=== PATIENT | male | born 1990 | race African-American/Black ===

== ENCOUNTER → 2024-10-03 11:10 | Observation (INO) ==
--- NOTE | 2024-10-02 15:00 | History & Physical Report ---
H&P: HPI History of Present Illness Chief complaint: dehydration, tachycardia, proteinuria, ketonuria Narrative: A 34-year-old male sent in from Emi Corral's office with going on a ivan this weekend had nausea and vomiting unable to really drink and eat feeling palpitations in his chest denies any fever, chills, diarrhea, constipation no ill contacts that he is aware of although he is around people at work. Denies any other symptoms and no previous medical history Review of Systems Status of ROS 10 or more systems reviewed and unremark able except as noted in history and below and unobtainable due to endotracheal tube Constitutional Reports: change in weight, fatigue, malaise and change in sleep pattern; Denies: fever or chills Eyes Denies: change in vision, blurry vision, blind spots, light sensitivity or eye discomfort Ears, nose, mouth, and throat Reports: dry mouth, ear discharge and change in hearing (CHRONIC HEARNG LOSS); Denies: throat pain, neck pain, throat swelling, difficulty swallowing, hoarseness, mouth pain or swelling of lips/tongue Cardiovascular Reports: palpitations; Denies: chest pain, edema, swelling of feet/ankles, lightheadedness or shortness of breath with exertion Respiratory Denies: shortness of breath, cough, wheezing or stridor Gastrointestinal Reports: abdominal pain, nausea, vomiting and difficulty swallowing; Denies: coffee grounds in vomit, heartburn, diarrhea, constipation, rectal swelling or change in stool character Genitourinary Reports: decreased urine ouput; Denies: painful urination, urinary frequency, urinary urgency, blood in urine, genital pain or genital lesi on Musculoskeletal Reports: muscle weakness (MUSCLE STIFFNESS); Denies: back pain, neck pain, extremity pain, extremity swelling, joint pain or limited range of motion Integumentary/Breast Reports: nail changes; Denies: rash, itching, redness, skin pain, skin tenderness, skin swelling, sores, new lesion, non-healing lesion, acne or breast swelling Neurological Reports: difficulty communicating thoughts; Denies: headache, numbness in extremities, weakness in extremities, lack of coordination, involuntary movements or other Psychiatric Reports: mood swings; Denies: panic attacks, change in sleep pattern, hopelessness, loss of interest, irritability, paranoia, memory loss, suicidal ideation or homicidal ideation Endocrine Reports: fatigue; Denies: excessive urination, excessive thirst, cold intolerance or excessive sweating Hematologic/Lymphatic Denies: easy bruising, easy bleeding or enlarged lymph nodes Allergic/Immunologic Denies: hives, throat swelling, tongue swelling, facial swelling or wheezing [facility] Medical History (Updated 10/03/24 @ 09:52 by Tessy Ramirez DO) Allergic rhinitis Social History Problems where you live: no known problems Highest level of school completed/degree received: high school Feel stressed/tense/nervous/anxious/difficulty sleeping: not at all Gender Identity: male Meds Home Medications and Allergies Home Medications Medication Instructions Recorded Confirmed Type ferrous sulfate 325 mg (65 mg 325 mg PO DAILY iron def iciency 10/03/24 Rx iron) tablet (Feosol) #30 tabs propranolol 10 mg tablet 10 mg PO BID hyperthyroid # 60 tabs 10/03/24 Rx propylthiouracil 50 mg tablet 50 mg PO BID hyperthyroi dism #60 10/03/24 Rx tabs Allergies Allergy/AdvReac Type Severity Reaction Status Date / Time ibuprofen Allergy Mild Verified 10/02/24 11:18 Exam Constitutional: normal general appearance, no apparent distress, average body habitus, no limitations and alert Vital Signs - 24 hr 10/02/24 10:50 10/02/24 12:12 Temperature 98.1 F 98.3 F Pulse Rate [Left C arotid] 60 Pulse Rate [Left] 96 H Respiratory Rate 20 20 Blood Pressure [Le ft Arm] 133/89 Blood Pressure [Ri ght Arm] 117/75 Pulse Oximetry 97 99 Oxygen Delivery Me thod Room Air Room Air HENMT: normocephalic, head/scalp atraumatic, hearing grossly normal bilaterally, external ears normal, oral mucous membranes abnormal and dentition abnormal Eyes: PERRL, EOMs intact bilaterally, conjunctivae normal, no scleral icterus, papilledema noted and periorbital findings normal Neck/C-Spine: visual inspection normal, trachea midline, cervical spine nontender, cervical full ROM noted, supple, no meningeal signs, thyroid normal and no carotid bruits Lymph: no lymphadenopathy noted and no lymphedema noted Chest: inspection of chest normal and palpation of chest normal Respiratory: breath sounds equal bilaterally, normal respiratory effort, clear to auscultation bilaterally, no wheezes, no rales, no retractions and no use of accessory muscles Cardiovascular: heart rate abnormal (tachycardic), regular rhythm noted, no gallop, no rub, no murmur, no JVD, no clicks and peripheral pulses 2+ throughout Gastrointestinal: abdomen normal to inspection, abdomen soft to palpation, tender to palpation, nontender to percussion, nondistended, abnormal bowel sounds noted (hyperactive bowel sounds), no hepatosplenomegaly, no masses, no pulsatile mass, no ascites and no hernia Genitourinary: no CVA tenderness, bladder normal to palpation, penis normal and circumcised Back/Pelvis: spine normal to inspection, no thoracic spine tenderness, no lumbar spine tenderness, thoracic spine ROM normal and lumbar spine ROM normal Extremities: normal to inspection, normal to palpation, no tenderness, full ROM, no joint enlargement and no deformity Neurology: 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, no movement abnormality noted, no focal motor deficit noted, no sensory deficits noted, deep tendon reflexes 2+ bilaterally, gait normal, speech normal, coordination normal, no pronator drift noted, fasciculations noted and GCS normal Psychiatry: Mental Status Exam documented within this Exam's Psych section mental status grossly normal, oriented x3, thought process abnormality noted, cooperative, affect normal, psychomotor activity normal and memory normal Feel stressed/tense/nervous/anxious/difficulty sleeping: not at all Skin: skin color abnormal Reports (pale), no rash, no lesions, no ecchymosis noted, no wounds, no lacerations, skin turgor abnormal Reports (tenting), no jaundice, no petechiae, no mottling, nails abnormality noted and no alopecia Assessment and Plan Assessment and Plan (1) Acute dehydration: Code(s): E86.0 - Dehydration (2) Tachycardia: Code(s): R00.0 - Tachycardia, unspecified (3) Allergic rhinitis: Qualifiers: Allergic rhinitis seasonality: seasonal Allergic rhinitis trigger: other Qualified Code(s): J30.89 - Other allergic rhinitis Code(s): J30.9 - Allergic rhinitis, unspecified (4) Nausea & vomiting: Qualifiers: Vomiting type: bilious vomiting Qualified Code(s): R11.14 - Bilious vomiting Code(s): R11.2 - Nausea with vomiting, unspecified (5) ETOH abuse: Code(s): F10.10 - Alcohol abuse, uncomplicated Plan 0.9% normal saline 1 L bolus then at 125 mL/h TSH 0.297 will need to get substantial studies to include thyroid ultrasound as an outpatient and T4 T3 uptake as an inpatient Cardiac monitoring Strict I's and O's Zofran 4 mg IV every 4 hours as needed nausea vomiting PTU 50 mg p.o. every 8 hours Propranolol 10 mg Results ECG Attestation: I have reviewed the pertinent ECG results. Prior ECG tracings: available for review Interpretation: EKG-sinus rhythm, early repolarization pattern, rate 81, 740 RR, NM 162
[2024-10-02 15:14] LABS: Basophils%(Percent) Auto 0.5 (0.0-1.3); Eosinophils#(Absolute)Auto 0.1 (0.0-0.3); Eosinophils%(Percent) Auto 1.8 % (0.0-4.0); Granulocytes % - Auto 68.9 % (49.1-73.1); Granulocytes#(Absolute)- Auto 4.3 (2.0-6.2); Hematocrit 37.1 % (41.3-50.1); Mean Corpuscular Volume 75.1 fl (81.9-96.5); Monocytes #(Absolute)- Auto 0.5 (0.2-0.8); Platelet Count 275 K/uL (142-355); White Blood Count 6.2 K/uL (3.7-9.6)
[2024-10-02] MEDS: 0.9 % SODIUM CHLORIDE 1000 ML 1,000 ML IV ONE (15:30)
[2024-10-02 15:33] LABS: Potassium 3.7 mmol/L (3.6-5.2)
[2024-10-02] MEDS: 0.9 % SODIUM CHLORIDE 1000 ML 1,000 ML IV SCH (17:10)
[2024-10-02 20:23] LABS: Urine Appearance CLEAR (CLEAR); Urine Blood NEGATIVE (NEG - TRACE); Urine Color YELLOW (STRAW/YELL.); Urine Urobilinogen Normal (NORMAL)
[2024-10-02 20:28] LABS: Amphetamine Screen Urine NEG. (NEGATIVE); Cannabinoid Screen Urine NEG. (NEGATIVE); Cocaine Screen Urine NEG. (NEGATIVE); Methadone Screen Urine NEG. (NEGATIVE); Opiate Screen Urine NEG. (NEGATIVE)
[2024-10-02] MEDS: PANTOPRAZOLE SODIUM 40 MG TABLET.DR PO SCH (21:06)
[2024-10-03 05:56] LABS: Basophils%(Percent) Auto 0.8 (0.0-1.3); Eosinophils#(Absolute)Auto 0.3 (0.0-0.3); Eosinophils%(Percent) Auto 5.7 % (0.0-4.0); Granulocytes % - Auto 49.2 % (49.1-73.1); Granulocytes#(Absolute)- Auto 2.7 (2.0-6.2); Hematocrit 31.8 % (41.3-50.1); Mean Corpuscular Volume 75.8 fl (81.9-96.5); Monocytes #(Absolute)- Auto 0.5 (0.2-0.8); Monocytes %(Percent)- Auto 8.5 % (4.5-10.7); Platelet Count 210 K/uL (142-355); White Blood Count 5.6 K/uL (3.7-9.6)
[2024-10-03 06:18] VITALS: TEMP 97.8
[2024-10-03 06:38] LABS: Potassium 4.1 mmol/L (3.6-5.2)
[2024-10-03 07:40] VITALS: BP 110/67; PULSE 94; RESP 19
--- NOTE | 2024-10-03 09:51 | Discharge Summary ---
DS: Providers Provider Date of admission: 10/02/24 10:15 Primary care physician: Emi Gr NP Admitting clinician: Emi Gr Attending physician on admission: Tessy Ramirez Attending physician on discharge: Tessy Ramirez Discharging clinician: Tessy Ramirez Anticipated date of discharge: 10/03/24 DS: Diagnosis Discharge Diagnosis (1) Acute dehydration: (2) Tachycardia: (3) Allergic rhinitis: Qualifiers: Allergic rhinitis seasonality: seasonal Allergic rhinitis trigger: other Qualified Code(s): J30.89 - Other allergic rhinitis (4) Nausea & vomiting: Qualifiers: Vomiting type: bilious vomiting Qualified Code(s): R11.14 - Bilious vomiting (5) ETOH abuse: (6) Hyperthyroidism: (7) Anemia: Qualifiers: Anemia type: other cause Other causes of anemia: other cause, not classified Qualified Code(s): D64.89 - Other specified anemias (8) Hypoalbuminemia: DS: Summary Hospital Course Hospital Course: Patient did well during hospitalization no more nausea or vomiting and was able to eat and drink TSH came back at 0.24 so thyroid ultrasound was scheduled and brimonidine was sent to endocrinology for the treatment of his hypothyroidism definitive treatment. Iron studies pending for anemia as machine in the lab has been down and it was a send out. Sodium corrected to 145 today with fluids and oral intake of fluids Status at Discharge Functional status at discharge: independent ambulation Overall status at discharge: patient is back to baseline Time Spent with Patient Time attestation: Total time spent providing and/or coordinating discharge services:49 Time spent: greater than 30 minutes Exam Constitutional: normal general appearance, no apparent distress, average body habitus, no limitations and alert Vital Signs - 24 hr 10/02/24 10:50 10/02/24 12:12 10/02/24 16:29 Temperature 98.1 F 98.3 F 98.4 F Pulse Rate [Brachi al] Pulse Rate [Left C arotid] 60 77 Pulse Rate [Left] 96 H 19 L Respiratory Rate 20 20 99 H Blood Pressure [Le ft Arm] 133/89 Blood Pressure [Ri ght Arm] 117/75 123/72 Pulse Oximetry 97 99 Oxygen Delivery Me thod Room Air Room Air Room Air 10/02/24 21:06 10/03/24 00:00 06/24/25 06:17 Temperature 98.0 F 98.2 F 97.8 F Pulse Rate [Brachi al] 86 88 84 Pulse Rate [Left C arotid] Pulse Rate [Left] Respiratory Rate 17 16 17 Blood Pressure [Le ft Arm] Blood Pressure [Ri ght Arm] 132/85 108/57 107/65 Pulse Oximetry 97 98 98 Oxygen Delivery Me thod Room Air Room Air Room Air 10/03/24 07:39 Temperature 97.8 F Pulse Rate [Brachi al] 94 H Pulse Rate [Left C arotid] Pulse Rate [Left] Respiratory Rate 19 Blood Pressure [Le ft Arm] Blood Pressure [Ri ght Arm] 110/67 Pulse Oximetry 96 Oxygen Delivery Me thod Room Air HENMT: normocephalic, head/scalp atraumatic, hearing grossly normal bilaterally and external ears normal Eyes: PERRL, EOMs intact bilaterally, conjunctivae normal and no scleral icterus Neck/C-Spine: visual inspection normal, trachea midline, cervical spine nontender, cervical full ROM noted, supple and thyroid normal Lymph: no lymphadenopathy noted and no lymphedema noted Chest: inspection of chest normal and palpation of chest normal Respiratory: breath sounds equal bilaterally, normal respiratory effort, clear to auscultation bilaterally, no wheezes, no rales, no retractions and no use of accessory muscles Cardiovascular: normal heart rate noted, regular rhythm noted, no gallop, no rub, no murmur, no JVD, no clicks and peripheral pulses 2+ throughout Gastrointestinal: abdomen normal to inspection, abdomen soft to palpation, nontender to palpation, nontender to percussion, nondistended, normoactive bowel sounds, no hepatosplenomegaly, no masses, no pulsatile mass, no ascites and no hernia Genitourinary: no CVA tenderness, bladder normal to palpation, penis normal and circumcised Back/Pelvis: spine normal to inspection, no thoracic spine tenderness, no lumbar spine tenderness, thoracic spine ROM normal and lumbar spine ROM normal Extremities: normal to inspection, normal to palpation, no tenderness, full ROM, no joint enlargement and no deformity Neurology: security manager II-XII 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, no movement abnormality noted, no focal motor deficit noted, no sensory deficits noted, deep tendon reflexes 2+ bilaterally, gait normal, speech normal, coordination normal, no pronator drift noted, fasciculations noted and GCS normal Psychiatry: Mental Status Exam documented within this Exam's Psych section mental status grossly normal, oriented x3, thought process abnormality noted, cooperative, affect normal, psychomotor activity normal and memory normal Feel stressed/tense/nervous/anxious/difficulty sleeping: not at all Skin: skin color normal, no rash, no lesions, no ecchymosis noted, no wounds, no lacerations, skin turgor normal, no jaundice, no petechiae, no mottling, na ils normal and no alopecia DS: Data Data Completed and Pending Labs on day of discharge: Labs from last 24 hours 10/03/24 10/02/24 10/02/24 05:15 19:52 15:20 WBC 5.6 RBC 4.2 L Hgb 10.5 L Hct 31.8 L MCV 75.8 L MCH 24.9 L MCHC 32.9 L RDW 19.9 H Plt Count 210 MPV 8.0 Gran % 49.2 Lymph % (Auto) 35.8 [place] % (Auto) 8.5 Eos % (Auto) 5.7 H Baso % (Auto) 0.8 Lymph # (Auto) 2.0 [place] # (Auto) 0.5 Eos # (Auto) 0.3 Baso # (Auto) 0.0 Absolute Gran (auto) 2.7 Sodium 145 Potassium 4.1 Chloride 108.0 H Carbon Dioxide 24 Anion Gap 13.0 BUN 11 Creatinine 0.7 Estimated GFR 124.0 Glucose 82 Lactic Acid Calcium 7.8 L Phosphorus 4.5 Magnesium 1.8 Total Bilirubin 0.50 AST 23 ALT 26 L Alkaline Phosphatase 36 L Total Protein 6.4 Albumin 3.1 L TSH Thyroxine (T4) 6.2 Urine Color Yellow Urine Appearance Clear Ur Specific [place] 1.010 Urine Protein Negative Urine Glucose (UA) Normal Urine Ketones Large Urine Occult Blood Negative Urine Nitrite Negative Urine Bilirubin Negative Urine Urobilinogen Normal Ur Leukocyte Esterase Negative Fluid pH 6.0 Urine Opiates Screen Neg. Urine Methadone Screen Neg. Barbiturate Screen Neg. Ur Phencyclidine Scrn Neg. Amphetamines Screen Neg. U Benzodiazepines Scrn Neg. Urine Cocaine Screen Neg. U Marijuana (THC) Screen Neg. Plasma/Serum Alcohol 1 10/02/24 15:10 WBC 6.2 RBC 4.9 Hgb 12.1 L Hct 37.1 L MCV 75.1 L MCH 24.5 L MCHC 32.6 L RDW 20.3 H Plt Count 275 MPV 7.5 Gran % 68.9 Lymph % (Auto) 20.8 [place] % (Auto) 8.0 Eos % (Auto) 1.8 Baso % (Auto) 0.5 Lymph # (Auto) 1.3 [place] # (Auto) 0.5 Eos # (Auto) 0.1 Baso # (Auto) 0.0 Absolute Gran (auto) 4.3 Sodium 135 L Potassium 3.7 Chloride 101.0 Carbon Dioxide 27 Anion Gap 7.0 BUN 11 Creatinine 0.8 Estimated GFR 119.1 Glucose 101 Lactic Acid 0.5 Calcium 8.9 Phosphorus 3.2 Magnesium 2.2 Total Bilirubin 0.74 AST 29 ALT 31 Alkaline Phosphatase 37 L Total Protein 7.9 Albumin 4.0 TSH 0.29 L Thyroxine (T4) Urine Color Urine Appearance Ur Specific [place] Urine Protein Urine Glucose (UA) Urine Ketones Urine Occult Blood Urine Nitrite Urine Bilirubin Urine Urobilinogen Ur Leukocyte Esterase Fluid pH Urine Opiates Screen Urine Methadone Screen Barbiturate Screen Ur Phencyclidine Scrn Amphetamines Screen U Benzodiazepines Scrn Urine Cocaine Screen U Marijuana (THC) Screen Plasma/Serum Alcohol Discharge Plan Discharge Disposition: Home, Self-Care Condition: Stable Discharge Medications: New ferrous sulfate [Feosol] 325 mg (65 mg iron) tablet 325 mg PO DAILY Qty: 30 0RF propylthiouracil 50 mg tablet 50 mg PO BID Qty: 60 0RF propranolol 10 mg tablet 10 mg PO BID Qty: 60 0RF Discharge Orders: Discharge Order (Routine); Ordered 10/03/24 Ordered By: Tessy Ramirez Activity: increase activity as tolerated Diet: advance to your usual diet Activity Restrictions/Additional Instructions: Increase water in his diet Patient states he has not had to stop trouble stopping alcohol he will not Not drink anymore Understands importance of treating hypothyroidism and the health issues that it can cause and will follow-up with amantadine for further workup and evaluation of hyperthyroid Iron studies pending Follow-up amantadine in 5 days to see how medications to treat the hypothyroid is doing as well as iron results and have lots I will have the ultrasound of the thyroid completed Endocrinology follow-up Forms: Portal/Health Info Access Inst Follow-Ups: Emi Gr NP [Primary Care Provider, Medical] - 10/09/24 9:30 am
[~2024-10-03 11:10] MED LIST: ONDANSETRON HCL/PF 4 MG/2 ML VIAL IVP PRN; polyethylene glycoL 3350 17 GM POWD.PACK PO ONE
== END | disposition home or self-care (01) ==
LOC: MS
PROVIDERS: ADMIT Family Medicine; ATTEND Family Medicine